=== PATIENT | female | born 1970 | race Caucasian/White ===

== ENCOUNTER 2019-05-04 09:01 | Emergency (ER) | payer BC ==
[2019-05-04] MEDS ORDERED: KETOROLAC 30 MG/ML INJ ONE (09:37)
[2019-05-04 09:45] LABS: Absolute Lymphocytes (CBC) 1.5 K/uL (0.7-4.9); Hematocrit 35.8 % (36.0-45.0); Lymphocytes % 29.4 % (15.3-44.8); MPV 6.2 fL (7.6-11.3); RBC Red Blood Cell Count 4.01 M/uL (3.86-4.86)
[2019-05-04 09:54] LABS: Urine Blood NEGATIVE (NEG); Urine Glucose NEGATIVE (NEG); Urine Protein NEGATIVE (NEG); Urine pH 8.5 (5.0-7.0)
[2019-05-04 09:58] LABS: ALT/SGPT 70 U/L (12-78); AST/SGOT 32 U/L (15-37); Albumin 3.5 g/dL (3.4-5.0); Alkaline Phosphatase 89 U/L (45-117); BUN Blood Urea Nitrogen 13 mg/dL (7-18); Bicarbonate 28 mmol/L (21-32); Bilirubin Direct 0.1 mg/dL (0-0.2); Bilirubin Total 0.3 mg/dL (0.2-1.0); Glucose Level 102 mg/dL (74-106); Potassium 4.2 mmol/L (3.5-5.1); Protein, Total 6.7 g/dL (6.4-8.2); Sodium Level 142 mmol/L (136-145)
[2019-05-04] MEDS ORDERED: DIPHENHYDRAMINE 50 MG/ML VIAL ONE (10:19)
[2019-05-04] MEDS ORDERED: METHYLPREDNISOLONE 125 MG INJ ONE (10:19)
--- NOTE | 2019-05-04 10:37 | RAD REPORT ---
EXAM DESCRIPTION: CTAbdomen Pelvis W Contrast - 05/04/2019 10:26 am CLINICAL HISTORY: Abdominal pain. Left flank pain COMPARISON: No comparisons TECHNIQUE: Biphasic CT imaging of the abdomen and pelvis was performed with 100 ml non-ionic IV cont rast. All CT scans are performed using dose optimization technique as appropriate and may include automated exposure control or mA/KV adjustment according to patient size. FINDINGS: The lung bases are clear. The liver, pancreas, adrenal glands and kidneys are within normal limits. 26 mm low-density lesion is seen in the inferior aspect of the spleen. No bowel obstruction, free air, free fluid or abscess. The appendix is normal. No evidence of signi ficant lymphadenopathy. No suspicious bony findings. IMPRESSION: No acute intra-abdominal or pelvic finding.
--- NOTE | 2019-05-04 11:07 | RAD REPORT ---
EXAM DESCRIPTION: US - Extremity Venous Uni Ltd - 05/04/2019 10:35 am CLINICAL HISTORY: SWELLING Leg swelling and edema. COMPARISON: No comparisons FINDINGS: Left lower extremity venous system was interrogated with Doppler technique. Normal flow, c ompressibility and augmentation was noted. There is no DVT present. IMPRESSION: No evidence of left lower extremity deep venous thrombosis.
--- NOTE | 2019-05-04 11:27 | EDPHYS ---
Physician Documentation [facility] Name: Guerita Cook Age: 48 yrs Sex: Female : 1970 Arrival Date: 05/04/2019 Time: 09:03 Bed 19 Private MD: ED Physician Jean Mitchell HPI: 05/04 11:32 This 48 yrs old Female presents to ER via Ambulatory with complaints of kdr Possible Kidney Stone. 11:33 The patient presents with abdominal pain Left flank and mid to low back. Has been kdr ongoing since yesterday about 8:00 AM. She denies and recently injury or illness. While there is a family history of kidney stones, the patient has not had them previously. The patient has no other associated s/s. Onset: The symptoms/episode began/occurred gradually, yesterday, at 08:00. The symptoms do not radiate. Associated signs and symptoms: none. The symptoms are described as achy, burning, Occasionally sharp. 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 - Social history:: Smoking status: Patient/guardian denies using tobacco. - Ebola Screening: : No symptoms or risks identified at this time. ROS: 11:36 Constitutional: Negative for fever, chills, and weight loss, Eyes: Negative for injury, kdr pain, redness, and discharge, ENT: Negative for injury, pain, and discharge, Neck: Negative for injury, pain, and swelling, Cardiovascular: Negative for chest pain, palpitations, and edema, Respiratory: Negative for shortness of breath, cough, wheezing, and pleuritic chest pain, Abdomen/GI: Negative for abdominal pain, nausea, vomiting, diarrhea, and constipation, : Negative for injury, bleeding, discharge, and swelling, MS/Extremity: Negative for injury and deformity, Skin: Negative for injury, rash, and discoloration, Neuro: Negative for headache, weakness, numbness, tingling, and seizure activity. Psych: Negative for depression, anxiety, suicide ideation, homicidal ideation, and hallucinations, Allergy/Immunology: Negative for hives, rash, and allergies, Endocrine: Negative for neck swelling, polydipsia, polyuria, polyphagia, and marked weight changes, Hematologic/Lymphatic: Negative for swollen nodes, abnormal bleeding, and unusual bruising. 11:36 Back: Positive for pain at rest, pain with movement, Negative for injury or acute deformity, decreased range of motion, radiated pain. Exam: 11:36 Constitutional: This is a well developed, well nourished patient who is awake, alert, kdr and in no acute distress. Head/Face: Normocephalic, atraumatic. Eyes: Pupils equal round and reactive to light, extra-ocular motions intact. Lids and lashes normal. Conjunctiva and sclera are non-icteric and not injected. Cornea within normal limits. Periorbital areas with no swelling, redness, or edema. Neck: Trachea midline, no thyromegaly or masses palpated, and no cervical lymphadenopathy. Supple, full range of motion without nuchal rigidity, or vertebral point tenderness. No Meningismus. Chest/axilla: Normal chest wall appearance and motion. Nontender with no deformity. No lesions are appreciated. Cardiovascular: Regular rate and rhythm with a normal S1 and S2. No gallops, murmurs, or rubs. Normal PMI, no JVD. No pulse deficits. Respiratory: Lungs have equal breath sounds bilaterally, clear to auscultation and percussion. No rales, rhonchi or wheezes noted. No increased work of breathing, no retractions or nasal flaring. Abdomen/GI: Soft, non-tender, with normal bowel sounds. No distension or tympany. No guarding or rebound. No evidence of tenderness throughout. Back: No spinal tenderness. No costovertebral tenderness. Full range of motion. Skin: Warm, dry with normal turgor. Normal color with no rashes, no lesions, and no evidence of cellulitis. The patient has subjective swelling in her lower extremities left greater than left. This is not appreciated on physical exam MS/ Extremity: Pulses equal, no cyanosis. Neurovascular intact. Full, normal range of motion. Neuro: Awake and alert, GCS 15, oriented to person, place, time, and situation. Cranial nerves II-XII grossly intact. Motor strength 5/5 in all extremities. Sensory grossly intact. Cerebellar exam normal. Normal gait. Vital Signs: 09:12 BP 122 / 72; Pulse 70; Resp 16; Temp 98.2; Pulse Ox 100% on R/A; Weight 102.06 kg; la1 Height 5 ft. 10 in. (177.80 cm); 10:50 BP 106 / 73; Pulse 62; Resp 17; Pulse Ox 100% on R/A; ca1 11:45 BP 119 / 69; Pulse 61; Resp 17 S; Pulse Ox 99% on R/A; ca1 09:12 Body Mass Index 32.28 (102.06 kg, 177.80 cm) la1 MDM: 11:12 Data reviewed: vital signs, nurses notes, EMS record, snf records, diagnostic kdr data from outside facility, old medical records, lab test result(s), EKG. Counseling: I had a detailed discussion with the patient and/or guardian regarding: the historical points, exam findings, and any diagnostic results supporting the discharge/admit diagnosis, lab results, radiology results, the need for outpatient follow up. 11:26 Patient medically screened. kdr 11:28 ED course: The patient has no focal neurological deficits, transient or persistent. No kdr change in bowel or bladder habits. No numbness or changes sensation distally. No decreased strength/weakness in the lower extremities. No recent infections. No current suggestions of epidural abscess. 05/04 09:16 Order name: Basic Metabolic Panel; Complete Time: 11:02 kdr 05/04 09:16 Order name: CBC with Diff; Complete Time: 11:02 kdr 05/04 09:16 Order name: Creatinine for Radiology; Complete Time: 11:02 kdr 05/04 09:16 Order name: Hepatic Function; Complete Time: 11: kdr 05/04 09:50 Order name: Urine Dipstick--Ancillary (enter results); Complete Time: 11:02 bd 05/04 09:50 Order name: Urine --Ancillary (enter results); Complete Time: 11:02 bd 05/04 09:16 Order name: IV Saline Lock; Complete Time: 09:32 kdr 05/04 09:16 Order name: Labs collected and sent; Complete Time: 09:32 kdr 05/04 09:33 Order name: Urine Dipstick-Ancillary (obtain specimen); Complete Time: 09:42 la1 05/04 09:35 Order name: CT Abd/Pelvis - IV Contrast Only; Complete Time: 11:02 kdr 05/04 09:35 Order name: US Extremity Venous Unilateral Ltd; Complete Time: 11:36 kdr Administered Medications: 09:42 Drug: TORadol - Ketorolac 15 mg Route: IVP; Site: left antecubital; la1 11:55 Follow up: Response: No adverse reaction; Pain is decreased ca1 10:20 Drug: Benadryl 25 mg Route: IVP; Site: left antecubital; ca1 11:55 Follow up: Response: No adverse reaction ca1 10:22 Drug: SOLU-Medrol 125 mg Route: IVP; Site: left antecubital; ca1 11:55 Follow up: Response: No adverse reaction ca1 Disposition: 05/04/19 11:26 Discharged to Home. Impression: Left flank pain. - Condition is Stable. - Discharge Instructions: Flank Pain, [id number]. - Prescriptions for Tramadol 50 mg Oral Tablet - take 1 tablet by ORAL route every 8 hours as needed; 14 tablet. - Medication Reconciliation Form, Thank You Letter, Prescription Opioid Use form. - Follow up: Private Physician; When: 2 - 3 days; Reason: If symptoms return, Further diagnostic work-up, Recheck today's complaints, Continuance of care, Re-evaluation by your physician. - Problem is new. - Symptoms have improved. Signatures: Dispatcher [employer] EDMS Jean Mitchell MD MD kdr Kirsten Lane RN RN aa5 Israel Thrasher RN RN la1 Esthela Louis RN RN ca1 Corrections: (The following items were deleted from the chart) 12:05 11:26 05/04/2019 11:26 Discharged to Home. Impression: Left flank pain. Condition is ca1 Stable. Forms are Medication Reconciliation Form, Thank You Letter, Antibiotic Education, Prescription Opioid Use. Follow up: Private Physician; When: 2 - 3 days; Reason: If symptoms return, Further diagnostic work-up, Recheck today's complaints, Continuance of care, Re-evaluation by your physician. Problem is new. Symptoms have improved. kdr
--- NOTE | 2019-05-04 11:27 | ER ---
Nurse's Notes [facility] Name: Guerita Cook Age: 48 yrs Sex: Female : 1970 Arrival Date: 05/04/2019 Time: 09:03 Bed 19 Private MD: Diagnosis: Left flank pain Presentation: 05/04 09:12 Presenting complaint: Patient states: back pain since last night, swelling in la1 extremities this morning. Transition of care: patient was not received from another setting of care. Onset of symptoms was May 04, 2019. Risk Assessment: Do you want to hurt yourself or someone else? Patient reports no desire to harm self or others. Initial Sepsis Screen: Does the patient meet any 2 criteria? No. Patient's initial sepsis screen is negative. Does the patient have a suspected source of infection? No. Patient's initial sepsis screen is negative. Care prior to arrival: None. 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 - Social history:: Smoking status: Patient/guardian denies using tobacco. - Ebola Screening: : No symptoms or risks identified at this time. Screenin:33 Abuse screen: Denies threats or abuse. Nutritional screening: No deficits noted. la1 Tuberculosis screening: No symptoms or risk factors identified. Fall Risk None identified. Assessment: 09:33 General: Appears in no apparent distress. Behavior is. Pain: Complains of pain in back. la1 Neuro: Level of Consciousness is awake, alert, obeys commands, Oriented to person, place, time, situation. Cardiovascular: Capillary refill < 3 seconds Patient's skin is warm and dry. Respiratory: Airway is patent Respiratory effort is even, unlabored, Respiratory pattern is regular, symmetrical, Breath sounds are clear bilaterally. GI: Abdomen is round non-distended, Bowel sounds present X 4 quads. Abd is soft and non tender X 4 quads. : No signs and/or symptoms were reported regarding the genitourinary system. 10:08 Reassessment: Patient appears in no apparent distress at this time. No changes from la1 previously documented assessment. Patient and/or family updated on plan of care and expected duration. Pain level reassessed. Patient is alert, oriented x 3, equal unlabored respirations, skin warm/dry/pink. 10:50 Reassessment: Patient appears in no apparent distress at this time. Patient is alert, ca1 oriented x 3, equal unlabored respirations, skin warm/dry/pink. Pt back from CT scan. 11:45 Reassessment: Patient appears in no apparent distress at this time. Patient is alert, ca1 oriented x 3, equal unlabored respirations, skin warm/dry/pink. Vital Signs: 09:12 BP 122 / 72; Pulse 70; Resp 16; Temp 98.2; Pulse Ox 100% on R/A; Weight 102.06 kg; la1 Height 5 ft. 10 in. (177.80 cm); 10:50 BP 106 / 73; Pulse 62; Resp 17; Pulse Ox 100% on R/A; ca1 11:45 BP 119 / 69; Pulse 61; Resp 17 S; Pulse Ox 99% on R/A; ca1 09:12 Body Mass Index 32.28 (102.06 kg, 177.80 cm) la1 ED Course: 09:03 Patient arrived in ED. rg4 09:04 Jean Mitchell MD is Attending Physician. kdr 09:09 Israel Thrasher, SHERIF is Primary Nurse. la1 09:12 Triage completed. la1 09:13 Arm band placed on left wrist. la1 09:33 No provider procedures requiring assistance completed. Inserted saline lock: 20 gauge la1 in left antecubital area, using aseptic technique. Blood collected. 09:34 Patient has correct armband on for positive identification. la1 09:47 Urine collected: clean catch specimen, clear. mh5 10:27 CT Abd/Pelvis - IV Contrast Only In Process Unspecified. EDMS 10:43 US Extremity Venous Unilateral Ltd In Process Unspecified. EDMS 11:57 IV discontinued, intact, bleeding controlled, No redness/swelling at site. Pressure ca1 dressing applied. Administered Medications: 09:42 Drug: TORadol - Ketorolac 15 mg Route: IVP; Site: left antecubital; la1 11:55 Follow up: Response: No adverse reaction; Pain is decreased ca1 10:20 Drug: Benadryl 25 mg Route: IVP; Site: left antecubital; ca1 11:55 Follow up: Response: No adverse reaction ca1 10:22 Drug: SOLU-Medrol 125 mg Route: IVP; Site: left antecubital; ca1 11:55 Follow up: Response: No adverse reaction ca1 Outcome: 11:26 Discharge ordered by . kdr 12:02 Discharged to home ambulatory, with significant other. ae4 12:02 Condition: stable 12:02 Discharge instructions given to patient, significant other, Instructed on discharge instructions, follow up and referral plans. medication usage, Demonstrated understanding of instructions, Prescriptions given X 1. 12:05 Patient left the ED. ca1 Signatures: Dispatcher [employer] EDMS Jean Mitchell MD MD kdr Attema, Lee, RN RN Vikki Beatty Maria [facility] Esthela Louis RN RN ca1 Alexander Boyd RN RN ae4
[2019-05-04 12:25] VITALS: BP 119/69; O2SAT 99
== END 2019-05-04 12:05 | disposition home or self-care (01) ==
LOC: ER 09:01
DX: R10.9 Unspecified abdominal pain (principal); Z88.3 Allergy status to other anti-infective agents
CPT/HCPCS: 85025; 80048; 36415; 81025; 80076; 81003; 74177; 93971; 96375; 96374; 99284; Q9967; J1200; J2930

== ENCOUNTER 2020-10-31 10:24 | Observation (INO) | payer BC, OTHER ==
[2020-10-31 11:08] LABS: Absolute Lymphocytes (CBC) 2.9 K/uL (0.7-4.9); Basophils % 1.1 % (0-1.3); Hematocrit 40.6 % (36.0-45.0); Lymphocytes % 50.7 % (15.3-44.8); RBC Red Blood Cell Count 4.49 M/uL (3.86-4.86)
[2020-10-31 11:17] LABS: Protime INR 0.91
[2020-10-31] MEDS ORDERED: ONDANSETRON 4 MG/2 ML VIAL ONE (11:20)
[2020-10-31] MEDS ORDERED: MORPHINE 2 MG/ML SYR ONE (11:20)
[2020-10-31 11:31] LABS: ALT/SGPT 29 U/L (12-78); AST/SGOT 13 U/L (15-37); Albumin 3.6 g/dL (3.4-5.0); Alkaline Phosphatase 90 U/L (45-117); BUN Blood Urea Nitrogen 13 mg/dL (7-18); Bicarbonate 26 mmol/L (21-32); Bilirubin Direct < 0.1 mg/dL (0-0.2); Bilirubin Total 0.3 mg/dL (0.2-1.0); Glucose Level 106 mg/dL (74-106); Magnesium 2.3 mg/dL (1.8-2.4); NT PRO-BNP 36 pg/mL (<125); Potassium 4.2 mmol/L (3.5-5.1); Protein, Total 7.3 g/dL (6.4-8.2); Sodium Level 140 mmol/L (136-145); Troponin (Emerg Dept Use Only) < 0.02 ng/mL (0.0-0.045)
--- NOTE | 2020-10-31 12:01 | EDPHYS ---
Physician Documentation [facility] Name: Guerita Cook Age: 50 yrs Sex: Female : 1970 Arrival Date: 10/31/2020 Time: 10:25 Bed 17 Private MD: ED Physician Robin Calles HPI: 10/31 10:49 This 50 yrs old Female presents to ER via Ambulatory with complaints of Chest pkl Pain. 10:49 The patient or guardian reports chest pain that is located primarily in the substernal pkl area. Onset: 3 day(s) ago. The pain radiates to both arms. Associated signs and symptoms: Pertinent positives: shortness of breath. The chest pain is described as a pressure. 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 - Social history:: Smoking status: Patient reports the use of cigarette tobacco products, denies chronic smoking, but will smoke occasionally. ROS: 10:49 Eyes: Negative for injury, pain, redness, and discharge, ENT: Negative for injury, pkl pain, and discharge, Neck: Negative for injury, pain, and swelling. 10:49 Cardiovascular: Positive for chest pain. 10:49 Respiratory: Positive for shortness of breath, at rest. 10:49 Abdomen/GI: Negative for abdominal pain, nausea, vomiting, and diarrhea. 10:49 Back: Negative for acute changes. 10:49 : Negative for urinary symptoms. 10:49 MS/extremity: Negative for acute changes. 10:49 Skin: Negative for rash. 10:49 Neuro: Negative for altered mental status, loss of consciousness. Exam: 10:49 Head/Face: Normocephalic, atraumatic. Eyes: Pupils equal round and reactive to light, pkl extra-ocular motions intact. Lids and lashes normal. Conjunctiva and sclera are non-icteric and not injected. Cornea within normal limits. Periorbital areas with no swelling, redness, or edema. ENT: Nares patent. No nasal discharge, no septal abnormalities noted. Tympanic membranes are normal and external auditory canals are clear. Oropharynx with no redness, swelling, or masses, exudates, or evidence of obstruction, uvula midline. Mucous membranes moist. Neck: Trachea midline, no thyromegaly or masses palpated, and no cervical lymphadenopathy. Supple, full range of motion without nuchal rigidity, or vertebral point tenderness. No Meningismus. Chest/axilla: Normal chest wall appearance and motion. Nontender with no deformity. No lesions are appreciated. Cardiovascular: Regular rate and rhythm with a normal S1 and S2. No gallops, murmurs, or rubs. Normal PMI, no JVD. No pulse deficits. Respiratory: Lungs have equal breath sounds bilaterally, clear to auscultation and percussion. No rales, rhonchi or wheezes noted. No increased work of breathing, no retractions or nasal flaring. Abdomen/GI: Soft, non-tender, with normal bowel sounds. No distension or tympany. No guarding or rebound. No evidence of tenderness throughout. Back: No spinal tenderness. No costovertebral tenderness. Full range of motion. Skin: Warm, dry with normal turgor. Normal color with no rashes, no lesions, and no evidence of cellulitis. MS/ Extremity: Pulses equal, no cyanosis. Neurovascular intact. Full, normal range of motion. Neuro: Awake and alert, GCS 15, oriented to person, place, time, and situation. Cranial nerves II-XII grossly intact. Motor strength 5/5 in all extremities. Sensory grossly intact. Cerebellar exam normal. Normal gait. Vital Signs: 10:30 BP 159 / 87; Pulse 66; Resp 18; Temp 97.8; Pulse Ox 97% on R/A; Weight 99.79 kg; Height em 5 ft. 10 in. (177.80 cm); Pain 6/10; 11:24 BP 87 / 57; Pulse 63; Resp 17; Pulse Ox 98% on R/A; ap3 13:02 BP 128 / 60; Pulse 72; Pulse Ox 97% on R/A; ap3 14:35 BP 114 / 77; Pulse 65; Pulse Ox 99% on R/A; ap3 10:30 Body Mass Index 31.57 (99.79 kg, 177.80 cm) em MDM: 10:34 Patient medically screened. pkl 11:40 Data reviewed: vital signs, nurses notes. ED course: Patient still having chest pain. pkl Would like to be admitted for observation and further evaluation. 11:57 ED course: Talked to Titus ( HOUSEKEEPER SUPERVISOR ) For observation Dr. Delaney ). pk 10/31 10:47 Order name: Basic Metabolic Panel; Complete Time: 11:36 pkl 10/31 10:47 Order name: CBC with Diff; Complete Time: 11:36 pk 10/31 10:47 Order name: LFT's; Complete Time: 11:36 pk 10/31 10:47 Order name: Magnesium; Complete Time: 11:36 pk 10/31 10:47 Order name: NT PRO-BNP; Complete Time: 11:36 pk 10/31 10:47 Order name: PT-INR; Complete Time: 11:36 pk 10/31 10:47 Order name: Troponin (emerg Dept Use Only); Complete Time: 11:36 pk 10/31 10:47 Order name: XRAY Chest (1 view) pk 10/31 10:47 Order name: EKG; Complete Time: 10:48 pk 10/31 10:47 Order name: D-Dimer; Complete Time: 11:36 pk 10/31 13:22 Order name: SARS-COV-2 RT PCR EDSD 10/31 10:47 Order name: Cardiac monitoring; Complete Time: 10:58 pk 10/31 10:47 Order name: EKG - Nurse/Tech; Complete Time: 10:58 pk 10/31 10:47 Order name: IV Saline Lock; Complete Time: 10:58 [facility] 10/31 10:47 Order name: Labs collected and sent; Complete Time: 10:58 pk 10/31 10:47 Order name: O2 Per Protocol; Complete Time: 10:58 pk 10/31 10:47 Order name: O2 Sat Monitoring; Complete Time: 10:58 pk Administered Medications: 11:07 Drug: morphine 2 mg {Note: patient awake, alert complains of pain 6/10 on a scale of ap3 0-10..} Route: IVP; Site: right antecubital; 13:04 Follow up: Response: No adverse reaction; Pain is decreased ap3 11:07 Drug: Zofran (Ondansetron) 4 mg Route: IVP; Site: right antecubital; ap3 13:03 Follow up: Response: No adverse reaction; Nausea is decreased ap3 Disposition: 10/31/20 12:00 Hospitalization ordered by Gray Delaney for Observation. Preliminary diagnosis is Chest pain. - Bed requested for Telemetry/MedSurg (observation). - Status is Observation. ap3 - Condition is Stable. - Problem is new. - Symptoms are unchanged. Signatures: Dispatcher [employer] EDMS Sis Parmar Robin Christian MD MD pkl Adolfo Pereyra, SHERIF GORMAN em Cynthia Turk RN RN ap3 Corrections: (The following items were deleted from the chart) 12:34 12:00 CORONAVIRUS+MR.LAB.BRZ ordered. EDSD EDMS 14:47 12:00 Hospitalization Ordered by Gray Delaney DO for Observation. Preliminary bd diagnosis is Chest pain. Bed requested for Telemetry/MedSurg (observation). Status is Observation. Condition is Stable. Problem is new. Symptoms are unchanged. pkl 15:31 14:47 10/31/2020 12:00 Hospitalization Ordered by Gray Delaney DO for Observation. ap3 Preliminary diagnosis is Chest pain. Bed requested for Telemetry/MedSurg (observation). Status is Observation. Condition is Stable. Problem is new. Symptoms are unchanged. bd
--- NOTE | 2020-10-31 12:01 | ER ---
Nurse's Notes [facility] Name: Guerita Cook Age: 50 yrs Sex: Female : 1970 Arrival Date: 10/31/2020 Time: 10:25 Bed 17 Private MD: Diagnosis: Chest pain Presentation: 10/31 10:30 Chief complaint: Patient states: Chest pain for several weeks but last 3-4 days has em been worse, also reports shortness of breath and nausea, denies cough or fever. Coronavirus screen: Client denies travel out of the [place] in the last 14 days. Ebola Screen: Patient negative for fever greater than or equal to 101.5 degrees Fahrenheit, and additional compatible Ebola Virus Disease symptoms Patient denies exposure to infectious person. Patient denies travel to an Ebola-affected area in the 21 days before illness onset. No symptoms or risks identified at this time. Initial Sepsis Screen: Does the patient meet any 2 criteria? No. Patient's initial sepsis screen is negative. Does the patient have a suspected source of infection? No. Patient's initial sepsis screen is negative. Risk Assessment: Do you want to hurt yourself or someone else? Patient reports no desire to harm self or others. Onset of symptoms was October 31, 2020. 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 - Social history:: Smoking status: Patient reports the use of cigarette tobacco products, denies chronic smoking, but will smoke occasionally. Screenin:57 Abuse screen: Denies threats or abuse. Nutritional screening: No deficits noted. ap3 Tuberculosis screening: No symptoms or risk factors identified. Fall Risk None identified. Assessment: 10:36 Also complains of shortness of breath, stress. General: Appears uncomfortable, well ap3 groomed, Behavior is cooperative, appropriate for age, anxious. Pain: Complains of pain in chest Pain radiates to right arm and left arm Pain currently is 6 out of 10 on a pain scale. Pain began 2-3 days ago. Noted to be crying. Neuro: Level of Consciousness is awake, alert, obeys commands, Oriented to person, place, time, situation, Gait is steady, Speech is normal, Facial symmetry appears normal. Cardiovascular: Capillary refill < 3 seconds. Respiratory: Airway is patent Respiratory effort is even, unlabored, Respiratory pattern is regular, symmetrical, Breath sounds are clear bilaterally. GI: No signs and/or symptoms were reported involving the gastrointestinal system. : No signs and/or symptoms were reported regarding the genitourinary system. 13:03 Reassessment: Patient and/or family updated on plan of care and expected duration. Pain ap3 level reassessed. Patient is alert, oriented x 3, equal unlabored respirations, skin warm/dry/pink. 14:35 Reassessment: Patient is alert, oriented x 3, equal unlabored respirations, skin ap3 warm/dry/pink. General: nurse assisted patient to restroom. no injuries occurred. patient is back in bed, side rails up X's 2. call light within reach. . 15:19 General: report called to 2nd floor med surg receiving nurse. . ap3 15:28 Reassessment: Patient and/or family updated on plan of care and expected duration. Pain ap3 level reassessed. patient updated on room status. Vital Signs: 10:30 BP 159 / 87; Pulse 66; Resp 18; Temp 97.8; Pulse Ox 97% on R/A; Weight 99.79 kg; Height em 5 ft. 10 in. (177.80 cm); Pain 6/10; 11:24 BP 87 / 57; Pulse 63; Resp 17; Pulse Ox 98% on R/A; ap3 13:02 BP 128 / 60; Pulse 72; Pulse Ox 97% on R/A; ap3 14:35 BP 114 / 77; Pulse 65; Pulse Ox 99% on R/A; ap3 10:30 Body Mass Index 31.57 (99.79 kg, 177.80 cm) em ED Course: 10:25 Patient arrived in ED. ds1 10:32 Triage completed. em 10:33 Arm band placed on. em 10:34 Robin Calles MD is Attending Physician. pkl 10:36 Cynthia Turk RN is Primary Nurse. ap3 10:39 EKG done, by ED staff, reviewed by Robin Calles MD. em 10:45 Inserted saline lock: 20 gauge in right antecubital area, using aseptic technique. ap3 Blood collected. 10:57 Patient has correct armband on for positive identification. Placed in gown. Bed in low ap3 position. Call light in reach. Side rails up X2. environmental monitoring technician on. Pulse ox on. NIBP on. 11:10 Patient maintains SpO2 saturation greater than 95% on room air. ap3 11:38 ED physician to see patient. ap3 11:50 XRAY Chest (1 view) In Process Unspecified. EDMS 11:59 Gray Delaney DO is Hospitalizing Provider. pkl 15:28 No provider procedures requiring assistance completed. Patient admitted, IV remains in ap3 place. Administered Medications: 11:07 Drug: morphine 2 mg {Note: patient awake, alert complains of pain 6/10 on a scale of ap3 0-10..} Route: IVP; Site: right antecubital; 13:04 Follow up: Response: No adverse reaction; Pain is decreased ap3 11:07 Drug: Zofran (Ondansetron) 4 mg Route: IVP; Site: right antecubital; ap3 13:03 Follow up: Response: No adverse reaction; Nausea is decreased ap3 Outcome: 12:00 Decision to Hospitalize by Provider. pkl 15:29 Admitted to Med/surg accompanied by tech, via wheelchair, room 214, with chart, Report ap3 called to receiving nurse 15:29 Condition: stable 15:29 Instructed on the need for admit, Demonstrated understanding of admission 15:31 Patient left the ED. ap3 Signatures: Dispatcher [employer] EDRobin Saunders MD MD pkl Adolfo Pereyra, RN RN Tiffanie Mott ds1 Cynthia Turk RN RN ap3
--- NOTE | 2020-10-31 13:04 | RAD REPORT ---
EXAM DESCRIPTION: RAD - Chest Single View - 10/31/2020 11:50 am CLINICAL HISTORY: CHEST PAIN Chest pain. COMPARISON: No comparisons FINDINGS: Portable technique limits examination quality. The lungs are mildly emphysematous but grossly clear. The heart is normal in size. No displaced fract ures. IMPRESSION: Mild COPD.
[2020-10-31] MEDS ORDERED: HYDRALAZINE HCL 20 MG/ML VIAL IV PRN (13:56)
[2020-10-31] MEDS ORDERED: ALBUTEROL 2.5 MG/3 ML NEB SOL NEB PRN (14:07)
[2020-10-31] MEDS ORDERED: ACETAMINOPHEN 500 MG TAB PO PRN (14:07)
[2020-10-31] MEDS ORDERED: ONDANSETRON 4 MG/2 ML VIAL IV PRN (14:07)
[2020-10-31] MEDS ORDERED: ASPIRIN 81 MG CHEWABLE TABLET PO ONE (14:31)
--- NOTE | 2020-10-31 14:32 | P.HP ---
Certification for Inpatient Patient admitted to: Observation With expected LOS: <2 Midnights Patient will require the following post-hospital care: None Practitioner: I am a practitioner with admitting privileges, knowledge of patient current condition, hospital course, and medical plan of care. Services: Services provided to patient in accordance with Admission requirements found in Title 42 Section 412.3 of the Code of Federal Regulations Patient History Date of Service: 10/31/20 Reason for admission: Chest pain History of Present Illness: Patient is a 50-year-old female with a past medical history significant for psoriasis, Obesity and psoriatic arthritis who presents with complaint of chest pain that has been ongoing for the past 4 days. Patient indicated that chest pain is located in the substernal chest area. Patient rated pain as 6/10 in severity and described pain as pressure\sharp in quality. Patient indicated that chest pain has been intermittent. Patient reported that chest pain radiates to her bilateral shoulders as well as bilateral arms. Patient reports associated signs and symptoms of diaphoresis, nausea, headache, bilateral hand numbness\tingling and shortness of breath. Patient denies any other signs or symptoms. Symptoms are aggravated or relieved by nothing. Patient decided to present to the hospital due to worsening symptoms. Allergies No Known Allergies Allergy (Unverified 10/31/20 14:53) Home medications list reviewed: No - Past Medical/Surgical History Diabetic: No -: Psoriasis -: Psoriatic arthritis -: Obesity - Family History Mother -: Hypertension - Social History Smoking Status: Current some day smoker Smoking therapy provided: Yes Patient receptive to therapy: Yes Alcohol use: No CD- Drugs: No Place of Residence: Home Review of Systems General: Other (Diaphoresis) Eyes: Unremarkable ENT: Unremarkable Respiratory: Shortness of Breath Cardiovascular: Chest Pain Gastrointestinal: Nausea Genitourinary: Unremarkable Musculoskeletal: Back Pain Integumentary: Unremarkable Neurological: Numbness, Other (Headache ) Physical Examination - Physical Exam General: Alert, Oriented x3 HEENT: Atraumatic, PERRLA, Mucous membr. moist/pink, EOMI, Sclerae nonicteric Neck: Supple, 2+ carotid pulse no bruit, No LAD, Without JVD or thyroid abnormality Respiratory: Clear to auscultation bilaterally, Normal air movement Cardiovascular: No edema, Regular rate/rhythm, Normal S1 S2 Capillary refill: Brisk Gastrointestinal: Normal bowel sounds, No tenderness Musculoskeletal: No clubbing, No tenderness Integumentary: No rashes Neurological: Normal gait, Normal speech, Normal strength at 5/5 x4 extr, Normal tone, Normal affect Lymphatics: No axilla or inguinal lymphadenopathy External genitalia: Deferred Rectal: Deferred - Studies Laboratory Data (last 24 hrs) 10/31/20 10:53: PT 10.5, INR 0.91 10/31/20 10:53: WBC 5.70, Hgb 13.4, Hct 40.6, Plt Count 343 10/31/20 10:53: Sodium 140, Potassium 4.2, BUN 13, Creatinine 0.69, Glucose 106, Magnesium 2.3, Total Bilirubin 0.3, AST 13 L, ALT 29, Alkaline Phosphatase 90 Assessment and Plan - Plan --Chest pain of unclear etiology. Will trend troponins--Negative so far. Surgical Technician consulted. Echocardiogram to assess for LV\Valvular functions and wall motion. Telemetry to monitor for any significant arrhythmia. We will await further recommendations from children's choir director. --History of psoriasis and psoriatic arthritis. Patient reports monthly injection with her PCP. Continue supportive care. --CKD 2. Baseline unknown. Will continue to monitor renal functions. -- Class 1 obesity. Likely secondary to excess calories intake. Patient counseled on diet and exercise therapy. -- Nicotine dependence. Patient reports occasional use of Nicotine. Patient counseled on tobacco cessation. Refuses nicotine patch. --Eelevated blood pressure. Will manage BP with hydralazine p.r.n.. --Headache. Tylenol p.r.n.. --Nausea. Antiemetics on board. --DVT prophylaxis with Lovenox subQ Discharge Plan: Home Plan to discharge in: 48 Hours - Advance Directives Does patient have a Living Will: No Does patient have a Durable POA for Healthcare: No - Code Status/Comfort Care Code Status Assessed: Yes Code Status: Full Code Critical Care: No
[2020-10-31] MEDS: ENOXAPARIN 40 MG/0.4 ML SQ SCH (15:00)
[2020-10-31 16:51] VITALS: BMI 31.5
[2020-10-31] MEDS: HYDROCODONE/APAP 5/325 MG TAB PO PRN (17:16)
[2020-10-31 18:03] LABS: Thyroid Stimulating Hormone 0.341 uIU/mL (0.360-3.740)
[2020-10-31] MEDS: SERTRALINE HCL 50 MG TAB PO SCH (20:51)
[2020-11-01 03:52] LABS: Absolute Lymphocytes (CBC) 3.4 K/uL (0.7-4.9); Hematocrit 38.6 % (36.0-45.0); Lymphocytes % 53.8 % (15.3-44.8); MPV 6.8 fL (7.6-11.3); Protime INR 1.03; RBC Red Blood Cell Count 4.25 M/uL (3.86-4.86)
[2020-11-01 03:56] LABS: Potassium 4.1 mmol/L (3.5-5.1)
[2020-11-01] MEDS: HYDROCODONE/APAP 5/325 MG TAB PO PRN ×2 (04:42→11:18)
[2020-11-01 04:53] LABS: Urine Appearance CLOUDY (Clear); Urine Bilirubin NEGATIVE (Negative); Urine Blood NEGATIVE (Negative); Urine Color YELLOW (Yellow); Urine Glucose NEGATIVE (Negative); Urine Microscopic Reflex ORDER UMIC; Urine Protein NEGATIVE (Negative)
[2020-11-01 05:09] LABS: Urine Amorphous Sediment 2+ /HPF (NONE SEEN); Urine Bacteria <20 /HPF (<20); Urine RBC NONE SEEN /HPF (NONE SEEN)
[2020-11-01] MEDS: SERTRALINE HCL 50 MG TAB PO SCH (08:55)
[2020-11-01] MEDS ORDERED: MULTIVITAMIN TAB PO SCH (09:00)
[2020-11-01] MEDS: ENOXAPARIN 40 MG/0.4 ML SQ SCH (09:00)
[2020-11-01] MEDS ORDERED: COENZYME Q10- 200 MG CAP PO SCH (09:00)
--- NOTE | 2020-11-01 09:01 | EKG ---
Test Date: 2020-10-31 Test Time: 10:39:10 Insulation Power Unit Tender: FLORES MEASUREMENT RESULTS: Intervals: Rate: 66 AL: 130 QRSD: 90 QT: 420 QTc: 440 [place]: P: 33 AL: 130 QRS: 6 T: 69 INTERPRETIVE STATEMENTS: Normal sinus rhythm Normal ECG No previous ECG available for comparison Electronically Signed On 11-01-20 08:58:58 CDT by Antonio Bradshaw
--- NOTE | 2020-11-01 10:03 | P.DS ---
Admission Date: 10/31/20 Discharge Date: 11/01/20 Primary Care Provider: Dr. Orr Disposition: ROUTINE DISCHARGE Discharge Condition: GOOD Reason for Admission: Chest pain Consultations: Cardiology-Dr. Bradshaw Procedures: COVID: Negative CXR: COMPARISON: No comparisons FINDINGS: Portable technique limits examination quality. The lungs are mildly emphysematous but grossly clear. The heart is normal in size. No displaced fractures. IMPRESSION: Mild COPD. ECHO: Unremarkable unremarkable. Normal ejection fraction Medical Problem List: Chest pain, atypical Possible underlying GERD Mixed hyperlipidemia History of psoriasis and psoriatic arthritis Depression Tobacco abuse Obesity, BMI 31.6 Brief History of Present Illness: 50-year-old female with a past medical history significant for psoriasis, Obesity and psoriatic arthritis who presents with complaint of chest pain that has been ongoing for the past 4 days. Patient indicated that chest pain is located in the substernal chest area. Patient rated pain as 6/10 in severity and described pain as pressure\sharp in quality. Patient indicated that chest pain has been intermittent. Patient reported that chest pain radiates to her bilateral shoulders as well as bilateral arms. Patient reports associated signs and symptoms of diaphoresis, nausea, headache, bilateral hand numbness\tingling and shortness of breath. Patient denies any other signs or symptoms. Symptoms are aggravated or relieved by nothing. Patient was admitted for observation. Hospital Course: Patient admitted for chest pain. No significant EKG changes noted. Cardiac enzymes unremarkable. Patient was seen and evaluated by cardiology. Echocardiogram performed showed normal ejection fraction without any abnormalities. Cardiology suspects atypical chest pain. Patient will be discharged home. Patient may continue with aspirin 81 mg daily. Recommend follow-up with cardiology in 1 to 2 weeks to follow-up hospitalization. Cardiology will perform outpatient cardiac stress test to further evaluate. Follow-up with PCP in 1 to 2 weeks to follow-up hospitalization. Patient may have underlying GERD. At discharge will recommend to start Pepcid 20 mg 1 pill twice daily. Patient may benefit with GI evaluation if cardiac work-up unremarkable. This can be done with the help of her PCP. Patient with mixed hyperlipidemia. Patient reports taking Crestor and co-Q10. Total triglycerides 282, total cholesterol 281, LDL 179, HDL 46. Recommend to recheck fasting lipid panel in 4 to 6 weeks to monitor her progress. If still abnormal patient may need to have further adjustments in medication. This can be done with the help of her PCP. Patient with depression. At discharge patient will continue with her current medications Zoloft 50 mg daily. Patient has been under a great deal of stress. Recommend follow-up with her PCP to further address. Patient with history of psoriasis and psoriatic arthritis. This appears stable. Patient with tobacco abuse. Tobacco cessation education provided. Vital Signs/Physical Exam: Temp Pulse Resp BP Pulse Ox 98.2 F 58 16 109/56 L 97 11/01/20 08:00 11/01/20 08:00 11/01/20 08:00 11/01/20 08:00 11/01/20 08:00 General: Alert, In no apparent distress, Oriented x3, Cooperative HEENT: Atraumatic Neck: Supple Respiratory: Clear to auscultation bilaterally, Normal air movement Cardiovascular: Normal pulses, Regular rate/rhythm Gastrointestinal: Normal bowel sounds, Soft and benign, Non-distended, No tenderness, No masses, No rebound, No guarding Musculoskeletal: No erythema, No tenderness, No warmth Integumentary: No tenderness/swelling Neurological: Normal speech, Normal strength at 5/5 x4 extr, Normal tone, Normal affect Laboratory Data at Discharge: WBC 6.30 K/uL (4.3-10.9) 11/01/20 03:07 Hgb 13.0 g/dL (12.0-15.0) 11/01/20 03:07 Hct 38.6 % (36.0-45.0) 11/01/20 03:07 Plt Count 314 K/uL (152-406) 11/01/20 03:07 PT 11.9 SECONDS (9.5-12.5) 11/01/20 03:07 INR 1.03 11/01/20 03:07 Sodium 142 mmol/L (136-145) 11/01/20 03:07 Potassium 4.1 mmol/L (3.5-5.1) 11/01/20 03:07 BUN 16 mg/dL (7-18) 11/01/20 03:07 Creatinine 0.75 mg/dL (0.55-1.3) 11/01/20 03:07 Glucose 112 mg/dL (74-106) H 11/01/20 03:07 Magnesium 2.3 mg/dL (1.8-2.4) 10/31/20 10:53 Total Bilirubin 0.3 mg/dL (0.2-1.0) 10/31/20 10:53 AST 13 U/L (15-37) L 10/31/20 10:53 ALT 29 U/L (12-78) 10/31/20 10:53 Alkaline Phosphatase 90 U/L (45-117) 10/31/20 10:53 Troponin I < 0.02 ng/mL (0.0-0.045) 11/01/20 03:07 Triglycerides 282 mg/dL (<150) H 11/01/20 06:51 Cholesterol 281 mg/dL (<200) H 11/01/20 06:51 HDL Cholesterol 46 mg/dL (40-60) 11/01/20 06:51 Cholesterol/HDL Ratio 6.11 11/01/20 06:51 Home Medications: Multivitamin 1 tab PO DAILY 10/31/20 Sertraline [Zoloft*] 50 ng PO BEDTIME 10/31/20 Ubidecarenone [Co Q-10] 50 mg PO DAILY 10/31/20 Aspirin [Aspirin EC 81 MG] 81 mg PO DAILY #30 tablet. 11/01/20 Famotidine [Pepcid] 20 mg PO BID #60 tab 11/01/20 New Medications: Aspirin [Aspirin EC 81 MG] 81 mg PO DAILY #30 tablet. Famotidine [Pepcid] 20 mg PO BID #60 tab Physician Discharge Instructions: Patient admitted for chest pain. No significant EKG changes noted. Cardiac enzymes unremarkable. Patient was seen and evaluated by cardiology. Echocardiogram performed showed normal ejection fraction without any abnormalities. Cardiology suspects atypical chest pain. Patient will be discharged home. Patient may continue with aspirin 81 mg daily. Recommend follow-up with cardiology in 1 to 2 weeks to follow-up hospitalization. Cardiology will perform outpatient cardiac stress test to further evaluate. Follow-up with PCP in 1 to 2 weeks to follow-up hospitalization. Patient may have underlying GERD. At discharge will recommend to start Pepcid 20 mg 1 pill twice daily. Patient may benefit with GI evaluation if cardiac work-up unremarkable. This can be done with the help of her PCP. Patient with mixed hyperlipidemia. Patient reports taking Crestor and co-Q10. Total triglycerides 282, total cholesterol 281, LDL 179, HDL 46. Recommend to recheck fasting lipid panel in 4 to 6 weeks to monitor her progress. If still abnormal patient may need to have further adjustments in medication. This can be done with the help of her PCP. Patient with depression. At discharge patient will continue with her current medications Zoloft 50 mg daily. Patient has been under a great deal of stress. Recommend follow-up with her PCP to further address. Patient with history of psoriasis and psoriatic arthritis. This appears stable. Patient with tobacco abuse. Tobacco cessation education provided. Diet: AHA Activity: Ad wai Followup: Carmella Louis [Primary Care Provider] - Time spent managing pt's care (in minutes): 55
[2020-11-01 11:09] VITALS: O2SAT 95
[2020-11-01 12:53] VITALS: BP 99/52; TEMP 98.3
[2020-11-01] MEDS ORDERED: SERTRALINE HCL 50 MG TAB PO SCH ×2 (20:01→21:00)
--- NOTE | 2020-11-02 08:15 | ECHO ---
HEIGHT: 5 ft 10 in WEIGHT: 220 lb 0 oz DATE OF STUDY: 11/01/[address]: Christopher Nuñez 2-DIMENSIONAL: YES M.MODE: YES DOPPLER: YES COLOR FLOW: YES TDS: NO PORTABLE: NO DEFINITY: NO BUBBLE STUDY: NO DIAGNOSIS: CHEST PAIN CARDIAC HISTORY: CATHERIZATION: SURGERY: PROSTHETIC VALVE: PACEMAKER: MEASUREMENTS (cm) DIASTOLIC (NORMALS) SYSTOLIC (NORMALS) IVSd 0.9 (0.6-1.2) LA Diam 3.7 (1.9-4.0) LVEF 55-60% LVIDd 3.4 (3.5-5.7) LVIDs 2.2 (2.0-3.5) %FS 36% LVPWd 1.1 (0.6-1.2) Ao Diam 2.8 (2.0-3.7) 2 DIMENSIONAL ASSESSMENT: RIGHT ATRIUM: NORMAL LEFT ATRIUM: NORMAL RIGHT VENTRICLE: NORMAL LEFT VENTRICLE: NORMAL TRICUSPID VALVE: NORMAL MITRAL VALVE: NORMAL PULMONIC VALVE: NORMAL AORTIC VALVE: NORMAL PERICARDIAL EFFUSION: NONE AORTIC ROOT: NORMAL LEFT VENTRICULAR WALL MOTION: NORMAL DOPPLER/COLOR FLOW: NORMAL COMMENTS: NORMAL LEFT VENTRICULAR EJECTION FRACTION 55-60%. NORMAL WALL MOTION. TECHNOLOGIST: Bobo TEIXEIRA
--- NOTE | 2020-11-05 10:25 | CON ---
Date of Consultation: 11/01/2020 Reason For Consultation: Admitted to Dr. Delaney with chest pain on 10/31/2020. I saw the patient on 11/01/2020. History Of Present Illness: Ms. Jacobson is a 50-year-old woman. She came into the hospital with ch est pain that has been going on for 3 days. She has been having shortness of breath with it. Descri bes it as pressure, occasionally radiates to the arms. No nausea, vomiting, diaphoresis, PND, orthop macario, pedal edema, palpitations, or syncope. Symptoms have been constant for 3 days. Sometimes they awake her up from sleep. Denies any PND, orthopnea, pedal edema, palpitation, syncope, fever, or chi lls. So far EKG is normal and troponin is normal. Past Medical History: Includes psoriasis. Past Surgical History: She has had a . Allergies: SHE IS ALLERGIC TO BETADINE. Review of Systems: Negative. Social History: Negative. Family History: Noncontributory. Physical Examination: Vital Signs: Stable. She was afebrile. HEENT: Negative. Neck: Supple with no bruit. Chest: Clear to auscultation and percussion. Cardiac: Revealed a regular rhythm and rate. No murmurs, gallops, or rubs. Abdomen: Benign. Extremities: Revealed no clubbing, cyanosis, or edema. Diagnostic Data: TSH was low. She has a cholesterol of 281 with an LDL of 179. Troponin is negativ e. Chest x-ray is negative. EKG is negative. Impression And Plan: Atypical chest pain in a patient with history of psoriasis and she is allergic to iodine, so far ruled out for myocardial infarction. An echocardiogram was perfectly normal. I th ink this probably more gastroesophageal reflux disease related. I think she needs to have her lipids treated with statin. I think her thyroid treated as well with Synthroid. I am comfortable with her going home. I think she needs to have an outpatient MPI in the near future and I will make an arran gement for that. IKE/DUSTIN Voice ID: [id number] Report ID: [id number]
== END 2020-11-01 12:30 | disposition home or self-care (01) ==
LOC: ER 10:24 → ERHOLD 13:17 → 2ND 15:19
PROVIDERS: ADMIT Family Medicine; ATTEND Family Medicine
DX: R07.89 Other chest pain (principal); L40.9 Psoriasis, unspecified; L40.50 Arthropathic psoriasis, unspecified; E78.2 Mixed hyperlipidemia; N18.2 Chronic kidney disease, stage 2 (mild); R03.0 Elevated blood-pressure reading, without diagnosis of hypertension; F32.9 Major depressive disorder, single episode, unspecified; E03.9 Hypothyroidism, unspecified; R51.9 Headache, unspecified; R11.0 Nausea; E66.9 Obesity, unspecified; Z68.31 Body mass index [BMI] 31.0-31.9, adult; Z71.3 Dietary counseling and surveillance; Z71.6 Tobacco abuse counseling; F17.210 Nicotine dependence, cigarettes, uncomplicated; Z91.041 Radiographic dye allergy status; Z20.822 Contact with and (suspected) exposure to COVID-19; Z82.49 Family history of ischemic heart disease and other diseases of the circulatory system
CPT/HCPCS: 93005; 93306; 85025 ×2; 80048 ×2; 36415 ×2; 83735; 85610 ×2; 80061; 85379; 80076; 84443; 84484 ×4; 84439; 83880 ×2; 71045; 96375; 96374; 99285; U0003; J1650 ×2; J2270; J2405 ×2; 81003; 81015